=== PATIENT | male | born 1945 | race Caucasian/White ===

== ENCOUNTER 2020-09-30 10:04 | Outpatient (REF) | payer SELFPAY | END 2020-09-30 10:05 | disposition home or self-care (01) | LOC: HO.HAP 10:04 | PROVIDERS: Visit Provider Family Medicine | DX: Z46.1 Encounter for fitting and adjustment of hearing aid (principal); H90.3 Sensorineural hearing loss, bilateral | CPT/HCPCS: 99499 ==

== ENCOUNTER 2021-11-15 09:04 | Outpatient (REF) | payer SELFPAY | END 2021-11-15 09:05 | disposition home or self-care (01) | LOC: HO.HAP 09:04 | PROVIDERS: Visit Provider Family Medicine | DX: Z46.1 Encounter for fitting and adjustment of hearing aid (principal); H90.3 Sensorineural hearing loss, bilateral | CPT/HCPCS: 99499 ==

== ENCOUNTER 2021-11-20 08:57 | Outpatient (REF) | payer SELFPAY | END 2021-11-20 08:58 | disposition home or self-care (01) | LOC: HO.HAP 08:57 | PROVIDERS: Visit Provider Family Medicine | DX: Z13.89 Encounter for screening for other disorder (principal) ==

== ENCOUNTER 2022-04-03 09:25 | Outpatient (REF) | payer SELFPAY | END 2022-04-03 09:26 | disposition home or self-care (01) | LOC: HO.HAP 09:25 | PROVIDERS: Visit Provider Family Medicine | DX: Z13.89 Encounter for screening for other disorder (principal) ==

== ENCOUNTER 2022-04-04 14:13 | Outpatient (REF) | payer SELFPAY | END 2022-04-04 14:14 | disposition home or self-care (01) | LOC: HO.HAP 14:13 | PROVIDERS: Visit Provider Family Medicine | DX: Z46.1 Encounter for fitting and adjustment of hearing aid (principal) | CPT/HCPCS: 92592; V5266 ==

== ENCOUNTER 2023-02-21 14:58 | Outpatient (REF) | payer SELFPAY ==
--- NOTE | 2023-02-21 15:53 | MHC.AU.HA3 ---
Hearing Instrument Follow-Up- Binaural Date of Visit: 02/21/23 Right Ear: Make, Model, Color, Serial Number: Esdras Rodriguez S V SP BTE SN: [id number] Color: Black Customer Support Analyst Repair Warranty: Battery Size: 13 Earmold/Dome/CShell/SlimTip:Microsonic Skeleton Dispensed By: [facility] Date of Fittin10/03/2011 Left Ear: Make, Model, Color, Serial Number: Esdras Rodriguez S V SP BTE SN: [id number] Color: Black Customer Support Analyst Repair Warranty: Battery Size: 13 Earmold/Dome/CShell/SlimTip: Microsonic Skeleton Dispensed By: [facility] Date of Fittin10/03/2011 Follow-Up Summary: Gurjit reported his left hearing aid is not working. He did not bring his right hearing aid as he rarely uses it. Upon inspection, tube hardened and plugged with wax and moisture. Cleaned hearing aid and ear mold. Vacuumed microphones. Ran through dehumidifier. Replaced tubing. Listening check demonstrated hearing aid amplifying clearly. Discussed age of device and possibility of new hearing aid as well as updated hearing test. Gurjit reported he is happy with his current device; however, he will request a doctor's order from his PCP for an updated hearing test. Recommendations: Hearing instrument maintenance in 6 months, or sooner if needed. Please contact our clinic with any questions or concerns. Recommendations (Other): Updated hearing test Diagnosis Code(s): Primary Diagnosis: H90.A22 SNHL, Unilatearl, Left Ear, W/Restricted Contralateral Hearing Secondary Diagnosis: H90.A31 Mixed HL, Unilateral Right Ear, W/Restricted Contralateral Signature: Provider: James Corona, [facility]
== END 2023-02-21 14:59 | disposition home or self-care (01) ==
LOC: HO.HAP 14:58
PROVIDERS: Visit Provider Family Medicine
DX: Z46.1 Encounter for fitting and adjustment of hearing aid (principal); H90.A22 Sensorineural hearing loss, unilateral, left ear, with restricted hearing on the contralateral side; H90.A31 Mixed conductive and sensorineural hearing loss, unilateral, right ear with restricted hearing on the contralateral side
CPT/HCPCS: 92593; V5266

== ENCOUNTER 2023-09-06 14:51 | Outpatient (REF) | payer BC, MEDICARE, SELFPAY | END 2023-09-06 14:52 | disposition home or self-care (01) | LOC: HO.SH 14:51 | PROVIDERS: Visit Provider Family Medicine | DX: Z01.118 Encounter for examination of ears and hearing with other abnormal findings (principal); H90.A21 Sensorineural hearing loss, unilateral, right ear, with restricted hearing on the contralateral side | CPT/HCPCS: 92557 ==

== ENCOUNTER 2023-09-06 15:48 | Outpatient (REF) | payer SELFPAY | END 2023-09-06 15:49 | disposition home or self-care (01) | LOC: HO.HAP 15:48 | PROVIDERS: Visit Provider Family Medicine | DX: Z46.1 Encounter for fitting and adjustment of hearing aid (principal) | CPT/HCPCS: 92593 ==

== ENCOUNTER 2024-04-16 13:38 | Outpatient (REF) | payer SELFPAY ==
--- OUTSIDE RECORDS SUMMARY | 2024-04-16 16:04 | XMS_ITS | Data Portability ---
Author Organization [place] - [facility], Allergy Address [address] [address] Assessment Encounter Date Assessment Date Assessment LastModified by Organization Details LastModified Time 08/13/2023 08/13/2023 78-year-old male presents for mastoid debridement. On examination bilateral mastoid with dry squamous debris removed without difficulty. Otologic exam stable. Follow-up in 3 months for repeat procedure or sooner if needed. indra Not available 08/13/2023 14:00:49 11/20/2023 11/20/2023 Patient with bilateral canal wall down mastoidectomy. Mastoid debridement performed today bilaterally which the patient tolerated well. The patient understands the need for routine mastoid bowl debridement procedures to prevent squamous debris accumulation and to reduce the risk of mastoid bowl infections. The patient will continue to follow dry ear precautions and will followup as discussed during today's visit. [email or web address] Not available 11/20/2023 13:26:58 02/24/2024 02/24/2024 79-year-old male with bilateral canal wall down mastoidectomy presents for mastoid debridement. Mastoids filled with dry squamous debris bilaterally removed without difficulty. No purulent drainage or granulation tissue. Follow-up in 3 months for repeat procedure. [email or web address] Not available 02/24/2024 14:23:06 Plan of Treatment Reminders Order Date Submit Date Provider Last Modified By Organization Details Last Modified Time Details Appointments Establish ed 15 2024 02:45P M ROBERTO DUMONT PA-C Not available Not available Not available Lab None recorded. Referral None recorded. Procedures None recorded. Surgeries None recorded. Imaging None recorded. Medication Orders None recorded. Patient TargetsNo targets recorded. Patient InstructionsNo instructions recorded. Reason for Referral None Reported. Problems Name Problem SNOMED Code Status Onset Date Resolution Date Notes Provider Name and Address Organization Details Recorded Time Impacted cerumen of bilatera l ears 20819886622 61606 Active 2019 Impacted cerumen, bilatera l; Note: Date Diagnose d: 0 1:56 PM (H61.23) Not Available [facility] 4 02:29:45 Candidal otitis externa 75820303 Active 2022 Candidal otitis externa; Note: Date Diagnose d: 07/26/2022 3:25 PM (B37.84) Not Available [facility] 4 02:29:45 Impacted cerumen in left ear 03145648448 66389 Active 2018 Impacted cerumen, left ear; Note: Date Diagnose d: 01/22/20 19 1:47 PM (H61.22) Not Available [facility] 4 02:29:42 Disorder due to type 2 diabetes mellitus 083320566 Active 2022 Type 2 diabetes mellitus with unspecif ied complica tions; Note: Date Diagnose d: 07/26/2022 3:24 PM (E11.8) Not Available [facility] 4 02:29:48 Postmast oidectom y complica tion 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 Other disorder s followin g mastoide ctomy, left ear; Note: Date Diagnose d: 07/26/2022 3:13 PM (H95.192 ) Other disorder s followin g mastoide ctomy, bilatera l ears; Note: Date Diagnose d: 2 1:13 PM (H95.193 ) ; Start Date : 06/14/19 Not Available [facility] 4 02:29:24 Otorrhea of right ear 58295586468 79964 Active 2018 Otorrhea , right ear; Note: Date Diagnose d: 9 11:49 AM (H92.11) Not Available [facility] 4 02:29:42 Bilatera l chronic mastoidi tis 74641207761 46786 Active 2016 Chronic mastoidi tis, bilatera l; Note: Date Diagnose d: 02/09/20 17 4:14 PM (H70.13) Not Available [facility] 4 02:29:45 Diffuse otitis externa 10012904 Completed 201910/25/2023 Diffuse otitis externa, left ear; Note: Date Diagnose d: 0 1:56 PM (H60.312 ) Not Available [facility] 4 02:29:17 Otorrhea of left ear 82832764474 16271 Active 2021 Otorrhea , left ear; Note: Date Diagnose d: 2 1:13 PM (H92.12) Otorrh ea, left ear; Note: Date Diagnose d: 1 2:10 PM (H92.12) ; Start Date : 06/15/19 Not Available [facility] 4 02:29:36 Asymmetr ical sensorin eural hearing loss 482867280 Active 2023 BRISEIDA MUNOZ [address] [facility],[address], [address] , [place] - [facility] 4 13:24:52 Problem Notes None recorded. Procedures Surgical History Date Name Laterality Status Provider Name and Address Organization Details Recorded Time 4 Debridement of Mastoid Cavity bilat completed ROBERTO DUMONT PA-C 100 [facility],[address], [address], [place] - [facility] 02/24/2024 14:22:44 4 Debridement of Mastoid Cavity bilat completed [facility] D[facility]ONT PA-C [facility] [place],[address], [address], [place] - [facility] 11/20/2023 13:26:25 4 Debridement of Mastoid Cavity bilat completed ROBERTO DUMONT PA-C [facility] [place],[address], [address], [place] - [facility] 08/13/2023 13:59:48 Imaging Results None recorded. Procedure Notes None recorded. Medical Equipment None Reported. Allergies Allergen ID Allergen Name Allergen Category Reaction Reaction Severity Criticality Documentation Date Start Date Code Code System Note Provider Name and Address Organization Details Recorded Time 66284 Product containin g penicilli n and antibioti c (product) medicatio n other Not available Not available 08/06/2023 06413 05 SNOMED React ion: unkno wn, unspe cifie d;; Not Available [facility] 4 00:51:40 03484 Substance with sulfonami de structure and antibacte rial mechanism of action (substanc e) medicatio n other Not available Not available 08/06/2023 81903 8003 SNOMED React ion: unkno wn, unspe cifie d;; Not Available [facility] 4 00:51:43 Medications Name Sig Start Date Stop Date Status Note LastModified by Organization Details LastModified Time Prescript ion - Prior Authoriza tion Request active Script Copy/Emma or Auth^ ipt Copy/Emma or Auth_ 26020 Not Available Not Available Not Available atorvasta tin 40 mg tablet TAKE 1 TABLET BY MOUTH EVERY DAY active Not Available Not Available No t Available metformin 500 mg tablet TAKE 1 TABLET BY MOUTH TWICE DAILY active Not Available Not Available No t Available flecainid e 150 mg tablet TAKE 1 TABLET BY MOUTH EVERY 12 HOURS active Not Available Not Available No t Available azithromy apolinar 250 mg tablet 07/26 completed Medicati on ID: [id number] B rand Name: erich colvin Sen d Method: E-Prescr ibed Sub s Allowed: subs OK Medic ationGen ericName : azithrom ycin Not Available Not Available Not Available diltiazem CD 180 mg capsule,e xtended release 24 hr TAKE 1 CAPSULE BY MOUTH EVERY DAY active Not Available Not Available No t Available senna 8.6 mg tablet TAKE 2 TABLETS BY MOUTH 1 TIME AT BEDTIME active Not Available Not Available No t Available glipizide ER 5 mg tablet, extended release 24 hr TAKE 2 TABLETS BY MOUTH EVERY MORNING AND EVERY EVENING active Not Available Not Available No t Available Lantus U-100 Insulin 100 unit/mL subcutane ous solution ADMINIST ER 15 UNITS UNDER THE SKIN IN THE EVENING active Not Available Not Available No t Available ofloxacin 0.3 % ear drops 4 drop into left ear 2020 active Medicati on ID: [id number] D uration Value: 14 Prescri bed By Name: SUMMER Echeverria nd Name: ofloxaci n Send Method: E-Prescr ibed Sub s Allowed: subs OK Medic ationGen ericName : ofloxaci n Not Available Not Available Not Available ciproflox acin 0.3 % eye drops active Not Available Not Available Not Available warfarin 5 mg tablet TAKE 2 TABLETS BY MOUTH DAILY active Not Available Not Available No t Available clotrimaz ole 1 % topical solution 2022 active Medicati on ID: [id number] D uration Value: 14 Brand Name: clotrima zole Sen d Method: E-Prescr ibed Sub s Allowed: subs OK Speci al Instruct ion: Apply 4 drops to left ear three times a day X 14 days Med icationG enericNa me: clotrima zole Not Available Not Available Not Available docusate sodium 100 mg capsule TAKE 1 CAPSULE BY MOUTH TWICE DAILY active Not Available Not Available No t Available insulin syringe U-100 with needle 1 mL 31 gauge x 08/07 USE DIRECTED active Not Available Not Available No t Available warfarin 1 mg tablet TAKE 1-2 TABLETS BY MOUTH EVERY DAY DIRECTED BASED ON INR RESULTS active Not Available Not Available No t Available tobramyci n 0.3 %-dexamet hasone 0.1 % eye drops,miri pension 07/26 completed Medicati on ID: [id number] B rand Name: tobramyc in-dexam ethasone Send Method: E-Prescr ibed Sub s Allowed: subs OK [facility] : tobramyc in-dexam ethasone Not Available Not Available Not Available Novolog Mix 70-30 FlexPen U-100 Insulin 100 unit/mL subcutane ous pen ADMINIST ER 10 UNITS UNDER THE SKIN TWICE DAILY active Not Available Not Available No t Available Ciprodex 0.3 %-0.1 % ear drops,miri pension Instill 4 drop into left ear twice a day as directed 2023 active Medicati on ID: [id number] D uration Value: 14 Brand Name: Ciprodex Send Method: E-Prescr ibed Sub s Allowed: subs OK Speci al Instruct ion: x 14 days [facility] C[facility] Not Available Not Available Not Available aripipraz ole 2 mg tablet TAKE 1 TABLET BY MOUTH EVERY DAY active Not Available Not Available No t Available Micro Thin Lancets 33 gauge USE FOR GLUCOSE MONITORI NG TWICE DAILY DIRECTED active Not Available Not Available No t Available Eliquis 5 mg tablet TAKE 1 TABLET BY MOUTH TWICE DAILY active Not Available Not Available No t Available Jardiance 10 mg tablet TAKE 1 TABLET BY MOUTH EVERY DAY active Not Available Not Available No t Available True Metrix Glucose Test Strip USE DIRECTED TWICE DAILY TO MONITOR GLUCOSE active Not Available Not Available No t Available Basaglar KwikPen U-100 Insulin 100 unit/mL (3 mL) subcutane ous ADMINIST ER 14 UNITS UNDER THE SKIN EVERY DAY DIRECTED active Not Available Not Available No t Available Ozempic 0.25 mg or 0.5 mg (2 mg/1.5 mL) subcutane ous pen injector 07/26 completed Medicati on ID: [id number] B rand Name: Ozempic Send Method: E-Prescr ibed Sub s Allowed: subs OK Medic ationGen ericName : Ozempic Not Available Not Available Not Available BD Cande 2nd Gen Pen Needle 32 gauge x USE DIRECTED EVERY DAY active Not Available Not Available No t Available FreeStyle Maris 2 Sensor kit USE DIRECTED CHANGE SENSORS EVERY 14 DAYS active Not Available Not Available No t Available Ozempic 1 mg/dose (4 mg/3 mL) subcutane ous pen injector active Medicati on ID: [id number] B rand Name: Ozempic Send Method: E-Prescr ibed Sub s Allowed: subs OK Medic ationGen ericName : Ozempic Not Available Not Available Not Available Mounjaro 7.5 mg/0.5 mL subcutane ous pen injector INJECT 7.5MG/0. 5ML UNDER THE SKIN EVERY WEEK active Not Available Not Available No t Available Mounjaro 5 mg/0.5 mL subcutane ous pen injector ADMINIST ER 5 MG UNDER THE SKIN EVERY WEEK active Not Available Not Available No t Available Ozempic 0.25 mg or 0.5 mg (2 mg/3 mL) subcutane ous pen injector INJECT 0.5 MG UNDER THE SKIN ONE DAY A WEEK DIRECTED FOR 30 DAYS active Not Available Not Available No t Available Vitals Date Recorded Body height Body mass index (BMI) Body weight Provider Name and Address Organization Details Last Updated DateTime 08/13/2023 185.42 cm 23.1 kg/m2 55088.66 g Nisha Cookie [facility] 08/13/2023 13:37:23 Date Recorded Body height Body mass index (BMI) Body weight Provider Name and Address Organization Details Last Updated DateTime 11/20/2023 185.42 cm 23.1 kg/m2 70034.66 g Rominatimbojj Lloyd [facility] 11/20/2023 12:39:18 Date Recorded Body height Body mass index (BMI) Body weight Provider Name and Address Organization Details Last Updated DateTime 02/24/2024 185.42 cm 23.1 kg/m2 59951.66 g Leticia Jose Alejandro [facility] 02/24/2024 13:55:10 Social History None recorded. Functional Status None recorded. Mental Status None recorded. Family History Nothing Reported. Medical History No medical history recorded. Past Encounters Encounter ID Performer Location Encounter Start Date Encounter Closed Date Diagnosis/Indication Diagnosis SNOMED-CT Code Diagnosis ICD10 Code Diagnosis Note [id number] NGHIA NG MD [facility] [address] [address] 08/13/2023 13:19:51 08/13/2023 13:59:32 Bilateral chronic mastoiditis [id number] 734295 H70.13 Disorder d ue to type 2 diabetes mellitus 537600877 E11.8 Impacted c erumen of bilateral ears 5930666858 182740 H61.23 [id number] AMELIA CERVANTES MD [facility] [address] [address] 11/20/2023 12:06:41 11/20/2023 13:13:59 Bilateral chronic mastoiditis 7733491745 406951 H70.13 Asymmetric al sensorineural hearing loss 689432097 H90.5 [id number] DAVID GREEN MD [facility] [address] [address] 02/24/2024 13:32:46 02/24/2024 16:16:33 Bilateral chronic mastoiditis 9455845617 447023 H70.13 Postmastoi dectomy complication 84719136 H95.192 H95.193 Health Concerns Section Related Observation LastModified by Organization Detai ls LastModified Time None Recorded Concern Status LastModified by Organization Details LastModified Time None Recorded Advance Directives Directive None Recorded Payers Encounter Date Sequence Insurance Name Policy Number Policy Pierce Covered Member ID Pierce Member ID Guarantor Name 08/13/2023 2 [facility] [place]: FED[employer]AL EMPLOYEE PROGRAM 104 Gurjit E Page [id number] Gurjit E Page 08/13/2023 1 [place] [facility] Gurjit E Page [id number] Gurjit E Page 11/20/2023 2 [facility] [place]: FED[employer]AL EMPLOYEE PROGRAM 104 Gurjit E Page [id number] Gurjit E Page 11/20/2023 1 [place] [facility] [employer] Gurjit E Page [id number] Gurjit E Page 02/24/2024 2 [facility] [place]: [employer]AL EMPLOYEE PROGRAM 104 Gurjit E Page [id number] Gurjit E Page 02/24/2024 1 [place] [facility] Gurjit E Page [id number] 7 Gurjit E Page Notes Date Note Type Note Provider Name and Address Organization Details Recorded Time 08/13/2023 text/html 78-year-old male with bilateral mastoid cavities presents for mastoid debridement. He has had other health issues recently but his ears have been dry without changes in hearing. NGHIA NG MD [address] [place] [address],[address], [address], [place] - [facility] 08/13/2023 17:57:43 11/20/2023 text/html 78-year-old male with bilateral canal wall down mastoidectomy presents for mastoid debridement. He has had no otorrhea or changes in his hearing since his last visit. AMELIA PEREZ MD [address] [place] [address],[address], [address], [place] - [facility] 11/20/2023 16:37:20 02/24/2024 text/html 79-year-old male with bilateral mastoidectomy presents for mastoid debridement. He has been doing well without ear drainage or changes in hearing. DAVID GREEN MD [address] [place] [address], [address], [facility] - [facility] 02/25/2024 11:50:33
== END 2024-04-16 13:39 | disposition home or self-care (01) ==
LOC: HO.HAP 13:38
PROVIDERS: Visit Provider Family Medicine
DX: Z46.1 Encounter for fitting and adjustment of hearing aid (principal); H90.A22 Sensorineural hearing loss, unilateral, left ear, with restricted hearing on the contralateral side; H90.A31 Mixed conductive and sensorineural hearing loss, unilateral, right ear with restricted hearing on the contralateral side
CPT/HCPCS: 92593

== ENCOUNTER 2024-12-30 15:33 | Outpatient (REF) | payer SELFPAY | END 2024-12-30 15:34 | disposition home or self-care (01) | LOC: HO.HAP 15:33 | PROVIDERS: Visit Provider Family Medicine | DX: Z13.89 Encounter for screening for other disorder (principal) ==

== ENCOUNTER 2024-12-31 12:30 | Outpatient (REF) | payer SELFPAY | END 2024-12-31 12:31 | disposition home or self-care (01) | LOC: HO.HAP 12:30 | PROVIDERS: Visit Provider Family Medicine | DX: Z46.1 Encounter for fitting and adjustment of hearing aid (principal); H90.A22 Sensorineural hearing loss, unilateral, left ear, with restricted hearing on the contralateral side; H90.A31 Mixed conductive and sensorineural hearing loss, unilateral, right ear with restricted hearing on the contralateral side | CPT/HCPCS: 92593; V5266 ==